=== PATIENT | female | born 1960 | race Caucasian/White ===

== ENCOUNTER 2017-02-07 10:00 | Emergency (ER) | payer OTHER ==
[~2017-02-07] VITALS: Ht 165.1 cm; Wt 90.7 kg
[2017-02-07] MEDS ORDERED: LIDOCAINE 2% 20 ML VIAL. IJ ONE (10:15)
[2017-02-07] MEDS ORDERED: ONDANSETRON ODT 4 MG TAB.RAPDIS ONE (10:23)
[2017-02-07] MEDS ORDERED: HYDR-971 PO (11:00)
[2017-02-07] MEDS ORDERED: ONDA4TAB10 SL (11:00)
[2017-02-07] MEDS ORDERED: CEPH-264 PO (11:00)
--- NOTE | 2017-02-07 11:00 | PHYS DOC ---
Past History Past Medical History: No Pertinent History Past Surgical History: No Surgical History Alcohol Use: None Drug Use: None Adult General Chief Complaint Chief Complaint: LACERATION/AVULSION HPI HPI Very pleasant 56-year-old female presenting to the emergency department for evaluation of right middle finger laceration sustained while she was at work today. She says that she was draining a can of beats when the top half sliced the tip of her finger and now there is profuse bleeding. She says that her tetanus status is up-to-date. She has some numbness and tingling to her fingertip but no weakness. She is in no obvious distress with normal vital signs. Review of Systems Review of Systems Constitutional: Denies fever or chills [] Integument: + laceration Neurologic: Denies focal weakness. + sensory changes [] Current Medications Current Medications Current Medications Medications (Trade) Dose Ordered Sig/Henri Start Time Stop Time Status Last Admin Dose Admin Lidocaine HCl 20 ml 1X ONCE 02/07/17 10:15 02/07/17 10:40 DC 02/07/17 10:15 20 ML Ondansetron HCl (Zofran Odt) 4 mg STK-MED ONCE 02/07/17 10:23 02/07/17 10:24 DC Allergies Allergies Allergies Coded Allergies Type Severity Reaction Last Updated Verified No Known Drug Allergies 02/07/17 No Physical Exam Physical Exam Constitutional: Well developed, well nourished, no acute distress, non-toxic appearance. [] Skin: Complex irregular shaped laceration to right middle finger pad that is approximately 3 cm in total length. Wound was examined in a bloodless field after tourniquet application as wound was bleeding profusely. There is subcutaneous fat visualized but no foreign body visualized. I could see distal tendon however it appeared intact with no obvious tendon laceration. Neurologic: Alert and oriented X 3, normal motor function. + Dullness to fingertip. Flexion of the middle finger tested at the PIP and DIP and she had 5 out of 5 strength in both tests. Current Patient Data Vital Signs Vital Signs Date Time Temp Pulse Resp B/P (MAP) Pulse Ox O2 Delivery O2 Flow Rate FiO2 02/07/17 10:30 98.8 74 22 99 Room Air EKG EKG [] Radiology/Procedures Radiology/Procedures Indication: [R middle finger laceration] Procedure: The patient was placed in the appropriate position and anesthesia was placed using 5 mL of 1% lidocaine in the base volar surface for digital block of the middle finger. Tourniquet was placed and then The area was then several flaps of skin were debrided and wound was irrigated copiously with saline. The wound was complex with flaps and irregular edges. Wound was approximated as well as I could with 8 5-0 nylon sutures. There was still some oozing of blood at the regular edges I could not put together so glue was placed on the wound as well. Wound was dressed and patient tolerated the procedure well Total repaired wound length: 3 cm Complications: No complications other than the large amount of blood that came from the wound requiring a tourniquet and that the wound was quite complex to repair. Course & Med Decision Making Course & Med Decision Making Complex distal pad laceration with no foreign body or tendon involvement on exam. She does have a neuropraxia which may or may not heal which I relayed to the patient. I told her the sutures can come out in 5-7 days and that she should follow with a hand surgeon for follow-up. I provided contact information for [facility]. The complexity of the wound I will place her on Keflex and give her [place] and Zofran for symptom control. Patient aware and agreeable with plan for discharge and verbalized understanding of the need for short-term follow-up in the strict ER return precautions discussed including worsening pain redness drainage or other general concerns. Dragon Disclaimer Dragon Disclaimer This chart was dictated in whole or in part using Voice Recognition software in a busy, high-work load, and often noisy Emergency Department environment. It may contain unintended and wholly unrecognized errors or omissions. Departure Departure: Impression: Primary Impression: Finger laceration with complication Additional Impression: Neuropraxia of upper extremity Disposition: HOME, SELF-CARE Condition: GOOD Referrals: ANGELES MENDOZA (PCP) Patient Instructions: Laceration Care, Adult Additional Instructions: THESE SUTURES CAN COME OUT IN 5-7 DAYS. CALL THE HAND SURGEON TO GET FOLLOW UP. COME BACK TO THE ED WITH WORSENING PAIN, DRAINAGE FEVERS, OR OTHER GENERAL CONCERNS. THANK YOU! Scripts Ondansetron (ZOFRAN ODT) 4 Mg Tab.rapdis 1 TAB SL Q8HRS, #15 TAB Prov: LULY CHE DO 02/07/17 Hydrocodone Bit/Acetaminophen (NORCO 5-325 TABLET) 1 Each Tablet 1 TAB PO PRN Q6HRS Y for PAIN, #20 TAB 0 Refills Prov: LULY CHE DO 02/07/17 Cephalexin (KEFLEX) 500 Mg Capsule 1 CAP PO BID, #10 CAP Prov: LULY CHE DO 02/07/17 Problem Qualifiers Primary Impression: Finger laceration with complication Encounter type: initial encounter Qualified Codes: S61.219A - Laceration without foreign body of unspecified finger without damage to nail, initial encounter LULY CHE DO Feb 07, 2017 11:00
[2017-02-07 11:08] VITALS: BP 127/79
[2017-02-07] MEDS ORDERED: ONDANSETRON ODT 4 MG TAB.RAPDIS PO ONE (11:45)
== END 2017-02-07 11:12 | disposition home or self-care (01) ==
LOC: ER 10:00
DX: S61.212A Laceration without foreign body of right middle finger without damage to nail, initial encounter (principal); S64.492A Injury of digital nerve of right middle finger, initial encounter; W26.8XXA Contact with other sharp object(s), not elsewhere classified, initial encounter; Y93.89 Activity, other specified; Y99.8 Other external cause status; Y92.89 Other specified places as the place of occurrence of the external cause
CPT/HCPCS: 12042; 99284; Q0162; J2001

== ENCOUNTER 2017-02-14 09:11 | Emergency (ER) | payer OTHER ==
[~2017-02-14 09:11] MED LIST: CEPH-264 PO; HYDR-971 PO; ONDA4TAB10 SL
--- NOTE | 2017-02-14 09:49 | PHYS DOC ---
Past History Past Medical History: No Pertinent History Past Surgical History: No Surgical History Alcohol Use: None Drug Use: None Adult General Chief Complaint Chief Complaint: suture removal [facility] Patient is a 56 year old F who presents with suture removal on her right index finger from a laceration 8 days ago. She was on Keflex. Over the past few days her finger has become more red and swollen. Review of Systems Review of Systems Constitutional: Denies fever or chills [] Eyes: Denies change in visual acuity, redness, or eye pain [] HENT: Denies nasal congestion or sore throat [] Respiratory: Denies cough or shortness of breath [] Cardiovascular: No additional information not addressed in HPI [] GI: Denies abdominal pain, nausea, vomiting, bloody stools or diarrhea [] : Denies dysuria or hematuria [] Musculoskeletal: Denies back pain or joint pain [] Integument: Negative except history of present illness Neurologic: Denies headache, focal weakness or sensory changes [] Endocrine: Denies polyuria or polydipsia [] Family History Family History Noncontributory Current Medications Current Medications Medications reviewed Allergies Allergies Allergies Coded Allergies Type Severity Reaction Last Updated Verified No Known Drug Allergies 02/07/17 No Physical Exam Physical Exam Constitutional: Well developed, well nourished, no acute distress, non-toxic appearance. [] HENT: Normocephalic, atraumatic, bilateral external ears normal, oropharynx moist, no oral exudates, Eyes: EOMI, conjunctiva normal, no discharge. [] Cardiovascular:Heart rate regular rhythm, Lungs & Thorax: Bilateral breath sounds clear to auscultation [] Skin: T-like laceration on the palmar surface of the right second finger on the distal finger pad, erythema was noted and mild pus after removal of the sutures Neurologic: Alert and oriented X 3, normal motor function, normal sensory function, no focal deficits noted. [] Psychologic: Affect normal, judgement normal, mood normal. [] Current Patient Data Vital Signs Review nursing documentation EKG EKG [] Radiology/Procedures Radiology/Procedures [] Course & Med Decision Making Course & Med Decision Making Pertinent Labs and Imaging studies reviewed. (See chart for details) Her wound appeared to be mildly infected. This infection will benefit from drainage of the wound. Her sutures were removed and Steri-Strips were placed over the wound to allow drainage but keeps edges approximated. She was also started on additional antibiotic, Augmentin. Dragon Disclaimer Dragon Disclaimer This chart was dictated in whole or in part using Voice Recognition software in a busy, high-work load, and often noisy Emergency Department environment. It may contain unintended and wholly unrecognized errors or omissions. Departure Departure: Impression: Primary Impression: Encounter for removal of sutures Additional Impression: Infected wound Disposition: HOME, SELF-CARE Condition: GOOD Patient Instructions: Suture Removal Additional Instructions: Shelley was seen in the emergency room for suture removal. No emergency medical condition was found on history or physical exam. Her wound was found to be infected. She was started on Augmentin. She is advised follow-up with her primary care doctor in the next 3-5 days for further management. Scripts Amoxicillin/Potassium Clav (AUGMENTIN 875-125 TABLET) 1 Each Tablet 1 TAB PO BID for 14 Days, #28 TAB Prov: PHILLIP MCCLENDON MD 02/14/17 Problem Qualifiers PHILLIP MCCLENDON MD Feb 14, 2017 09:49
[2017-02-14 10:00] VITALS: BP 118/81
[2017-02-14] MEDS ORDERED: AMOX1TAB61 PO (10:48)
[2017-02-14] MEDS ORDERED: AMOXICILLIN/K CLAV 875/125MG TABLET. PO ONE (11:00)
[2017-02-14] MEDS ORDERED: AMOXICILLIN/K CLAV 875/125MG TABLET. ONE (11:04)
== END 2017-02-14 10:57 | disposition home or self-care (01) ==
LOC: ER 09:11
DX: S61.210A Laceration without foreign body of right index finger without damage to nail, initial encounter (principal); T81.4XXA Infection following a procedure, initial encounter; X58.XXXA Exposure to other specified factors, initial encounter; Y93.89 Activity, other specified; Y99.8 Other external cause status; Y92.89 Other specified places as the place of occurrence of the external cause
CPT/HCPCS: 99283

== ENCOUNTER 2019-04-27 08:42 | Emergency (ER) | payer OTHER ==
[~2019-04-27 08:42] MED LIST changes: +AMOX1TAB61 PO; +HYDR-3165 PO; -HYDR-971 PO
[2019-04-27 10:15] VITALS: BP 143/59
--- NOTE | 2019-04-27 10:34 | RAD ---
SHOULDER 2+V LEFT History: Pain after a fall. Comminuted fracture of the left humeral head and neck. Displacement and separation of the fracture fragments, approximately 1 to 2 cm. Fracture extends into the tuberosities. No gross glenohumeral joint dislocation. There is some inferior subluxation of the shoulder. Acromioclavicular joint appears intact. IMPRESSION: Comminuted and displaced proximal humerus fracture. Electronically signed by: Durga Rodriguez MD (04/27/2019 10:31 AM) [facility]
[2019-04-27] MEDS ORDERED: ORPH-16 PO (10:55)
[2019-04-27] MEDS ORDERED: OXYC1TAB15 PO (10:55)
--- NOTE | 2019-04-27 10:55 | PHYS DOC ---
Past History Past Medical History: No Pertinent History Past Surgical History: Smoking: Non-smoker Alcohol Use: None Drug Use: None Adult General Chief Complaint Chief Complaint: SHANTEL HPI HPI 58-year-old female presents with report of left shoulder pain after mechanical slip and fall at her place of employment while walking into walk in freezer. Patient reports she was carrying a box of frozen chicken and lost her footing following to left side. Denies head trauma or loss of consciousness. Denies use of blood thinners. Denies neck pain. Reports significant pain with any range of motion about shoulder. Denies prior injury to that limb. Review of Systems Review of Systems Constitutional: Denies fever or chills Eyes: Denies redness or eye pain HENT: Denies nasal congestion or sore throat Respiratory: Denies cough or shortness of breath Cardiovascular: Denies chest pain or palpitations GI: Denies abdominal pain, nausea, or vomiting : Denies dysuria or hematuria Musculoskeletal: Denies back pain; reports left sided shoulder pain Integument: Denies rash or skin lesions Neurologic: Denies headache, focal weakness or sensory changes Complete systems were reviewed and found to be within normal limits, except as documented in this note. Current Medications Current Medications Current Medications Medications (Trade) Dose Ordered Sig/Henri Start Time Stop Time Status Last Admin Dose Admin Fentanyl Citrate (Fentanyl 2ml Vial) 50 mcg 1X ONCE 04/27/19 10:00 04/27/19 10:01 DC Ketorolac Tromethamine (Toradol 15mg Vial) 15 mg 1X ONCE 04/27/19 11:00 04/27/19 11:01 Orphenadrine Citrate (Norflex) 60 mg 1X ONCE 04/27/19 11:00 04/27/19 11:01 Oxycodone/ Acetaminophen (Percocet 5/325) 1 tab 1X ONCE 04/27/19 11:00 04/27/19 11:01 Allergies Allergies Allergies Coded Allergies Type Severity Reaction Last Updated Verified No Known Drug Allergies 02/07/17 No Physical Exam Physical Exam Constitutional: Well developed, well nourished, patient appears to be in moderate pain, non-toxic appearance HENT: Normocephalic, atraumatic, oropharynx moist Eyes: PERRL, EOMI, conjunctiva normal, no discharge Neck: Normal range of motion, no midline tenderness, supple Cardiovascular: Heart rate normal, regular rhythm Lungs & Thorax: Bilateral breath sounds clear to auscultation, no wheezing Abdomen: Soft, no tenderness; pelvis stable and nontender Skin: Warm, dry, no erythema, no rash Back: No midline tenderness, no CVA tenderness Extremities: Left glenohumeral pain on palpation, ROM limited due to pain, patient able to move wrist and finger, sensation intact, deformity noted to left shoulder, left radial pulse +2 Neurologic: Alert and oriented X 3, normal motor function, normal sensory function, no focal deficits noted Psychologic: Affect normal, judgement normal Current Patient Data Vital Signs Vital Signs Date Time Temp Pulse Resp B/P (MAP) Pulse Ox O2 Delivery O2 Flow Rate FiO2 04/27/19 10:15 67 24 98 Room Air EKG EKG [] Radiology/Procedures Radiology/Procedures PROCEDURE: SHOULDER 2+V LEFT SHOULDER 2+V LEFT History: Pain after a fall. Comminuted fracture of the left humeral head and neck. Displacement and separation of the fracture fragments, approximately 1 to 2 cm. Fracture extends into the tuberosities. No gross glenohumeral joint dislocation. There is some inferior subluxation of the shoulder. Acromioclavicular joint appears intact. IMPRESSION: Comminuted and displaced proximal humerus fracture. Electronically signed by: Durga Rodriguez MD (04/27/2019 10:31 AM) [facility] Course & Med Decision Making Course & Med Decision Making Pertinent Imaging studies reviewed. (See chart for details) Patient presents with left shoulder injury which occurred at patient's place of employment. Deformity noted. Pain addressed. Patient neurologically intact. XR confirmed proximal humeral fracture. Shoulder immobilizer applied. ICE applied. Shoulder immobilizer applied. Patient stable for discharge with outpatient follow-up with PCP/Orthopedics. Orthopedic referral provided. Discussed findings and plan with patient and family, who acknowledge understanding and agreement. Dragon Disclaimer Dragon Disclaimer This electronic medical record was generated, in whole or in part, using a voice recognition dictation system. Splinting Splinting : Location: Left shoulder Pre-Made Type: shoulder immobilizer Pre-Proc Neuro Vasc Exam: normal Post-Proc Neuro Vasc Exam: normal, unchanged from pre-exam Departure Departure: Impression: Primary Impression: Proximal humeral fracture Disposition: 01 HOME, SELF-CARE Condition: STABLE Referrals: ANGELES MENDOZA MD (PCP) YANN ALANIS MD Patient Instructions: Shoulder Fracture (Proximal Humerus or Glenoid)- SportsMed, Shoulder Immobilizer Scripts Orphenadrine Citrate (ORPHENADRINE CITRATE) 100 Mg Tablet.er 1 TAB PO BID PRN for MUSCLE PAIN, #14 TAB 0 Refills Prov: DURGA CORDOVA DO 04/27/19 Oxycodone Hcl/Acetaminophen (PERCOCET 5-325 MG TABLET ) 1 Each Tablet 1 TAB PO Q6HRS PRN for PAIN MDD 3 Tablet(s), #20 TAB 0 Refills Prov: DURGA CORDOVA DO 04/27/19 Problem Qualifiers Primary Impression: Proximal humeral fracture Encounter type: initial encounter Fracture type: closed Fracture morphology: unspecified fracture morphology Laterality: left Qualified Codes: S42.202A - Unspecified fracture of upper end of left humerus, initial encounter for closed fracture DURGA CORDOVA DO Apr 27, 2019 10:55
[2019-04-27] MEDS ORDERED: oxyCODONE/APAP 5/325 1 TAB TABLET PO ONE (11:00)
[2019-04-27] MEDS ORDERED: KETOROLAC 15 MG/ML VIAL. IVP ONE (11:00)
[2019-04-27] MEDS ORDERED: ORPHENADRINE CITRATE 60 MG/2 ML VIAL. IV ONE (11:00)
== END 2019-04-27 11:05 | disposition home or self-care (01) ==
LOC: ER 08:42
DX: S42.202A Unspecified fracture of upper end of left humerus, initial encounter for closed fracture (principal); W01.0XXA Fall on same level from slipping, tripping and stumbling without subsequent striking against object, initial encounter; Y93.01 Activity, walking, marching and hiking; Y92.89 Other specified places as the place of occurrence of the external cause; Y99.8 Other external cause status
CPT/HCPCS: 29105; 73030; 96372; 99284; J3010